=== PATIENT | female | born 1975 | race African-American/Black ===

== ENCOUNTER 2016-09-05 18:31 | Emergency (ER) | payer MEDICARE, MEDICAID, BC ==
[~2016-09-05] VITALS: Ht 162.6 cm; Wt 80.0 kg
[~2016-09-05 18:31] MED LIST: IPRA3AMP IH; MONT10TA21 PO; P50 PO; z pack
[2016-09-05] MEDS ORDERED: IBUPROFEN 600MG TABLET PO ONE (20:00)
[2016-09-05 21:30] VITALS: BP 138/87
== END 2016-09-05 22:16 | disposition home or self-care (01) ==
LOC: ER 18:32
DX: S83.92XA Sprain of unspecified site of left knee, initial encounter (principal); S93.401A Sprain of unspecified ligament of right ankle, initial encounter; J45.909 Unspecified asthma, uncomplicated; Z91.018 Allergy to other foods; Z79.899 Other long term (current) drug therapy; V49.9XXA Car occupant (driver) (passenger) injured in unspecified traffic accident, initial encounter; Y93.89 Activity, other specified; Y99.8 Other external cause status; Y92.89 Other specified places as the place of occurrence of the external cause
CPT/HCPCS: 29505; 73562; 73610; 99284

== ENCOUNTER 2016-10-20 17:37 | Emergency (ER) | payer BC, MEDICARE, MEDICAID ==
[~2016-10-20] VITALS: Ht 160 cm; Wt 89.3 kg
[2016-10-20 17:45] VITALS: BP 128/95
[2016-10-20] MEDS ORDERED: ALBU18HF2 IH (17:45)
[2016-10-20] MEDS ORDERED: MOME13HF IH (17:45)
[2016-10-20] MEDS ORDERED: IBUPROFEN 600MG TABLET PO ONE (19:00)
== END 2016-10-20 18:55 | disposition left against medical advice (07) ==
LOC: ER 18:35
DX: J45.909 Unspecified asthma, uncomplicated (principal); Z53.21 Procedure and treatment not carried out due to patient leaving prior to being seen by health care provider

== ENCOUNTER 2016-11-29 08:17 | Emergency (ER) | payer MEDICARE, MEDICAID ==
[~2016-11-29] VITALS: Ht 167.6 cm; Wt 84.0 kg
[~2016-11-29 08:17] MED LIST changes: +ALBU18HF2 IH; +MOME13HF IH
[2016-11-29] MEDS ORDERED: METHYLPREDNISOLONE SOD SUCC 125 MG/2 ML VIAL IV STA (08:54)
[2016-11-29] MEDS: ALBUTEROL (0.083%) 2.5MG/3ML NEB HHN SCH ×3 (09:19→10:19)
[2016-11-29 12:36] VITALS: BP 144/84
== END 2016-11-29 12:38 | disposition home or self-care (01) ==
LOC: ER 08:46
DX: J45.901 Unspecified asthma with (acute) exacerbation (principal); Z79.899 Other long term (current) drug therapy; Z91.018 Allergy to other foods
CPT/HCPCS: 71010; 94640; 96374; 99284; J2930; J7611

== ENCOUNTER 2016-12-30 23:30 | Emergency (ER) | payer MEDICARE, MEDICAID ==
[~2016-12-30] VITALS: Ht 160 cm; Wt 85.0 kg
[2016-12-30 23:41] VITALS: BP 164/114
[2016-12-30] MEDS ORDERED: ALBUTEROL (0.083%) 2.5MG/3ML NEB HHN STA (23:58)
[2016-12-30] MEDS ORDERED: IPRATROPIUM BROMIDE (0.02%) 0.5MG/2.5ML NEB HHN STA (23:58)
[2016-12-30] MEDS ORDERED: METHYLPREDNISOLONE SOD SUCC 125 MG/2 ML VIAL IV STA (23:58)
[2016-12-31 00:21] LABS: BASOPHILS % 0.3 % (0.0-2.0); HEMATOCRIT. 39.1 % (36.0-48.0); HEMOGLOBIN. 13.1 g/dL (12.0-16.0); LYMPHOCYTES % 36.1 % (20.0-50.0); MEAN CORPUSCULAR HEMOGLOBIN 26.8 pg (28.0-32.0); MEAN CORPUSCULAR VOLUME 80.3 fL (81.0-99.0); MEAN PLATELET VOLUME 8.2 fl (7.4-10.4); MONOCYTES % 4.6 % (2.0-8.0); PLATELET 259 x1000/uL (130-400); RED BLOOD CELL COUNT 4.87 mill/uL (4.2-5.4); RED CELL DISTRIBUTION WIDTH 15.9 % (11.6-14.6)
[2016-12-31 00:29] LABS: HCG SCREEN NEGATIVE
[2016-12-31 00:48] LABS: CARBON DIOXIDE 23 mEq/L (21-32); CHLORIDE 103 mEq/L (98-107)
[2016-12-31] MEDS ORDERED: ALBUTEROL (0.5%) 2.5MG/0.5ML NEB HHN ONE (02:00)
== END 2016-12-31 02:56 | disposition home or self-care (01) ==
LOC: ER 23:30
DX: J45.901 Unspecified asthma with (acute) exacerbation (principal); Z91.018 Allergy to other foods
CPT/HCPCS: 36415; 71010; 80048; 84703; 85025; 93005; 94640; 96374; 99285; J2930; J7611

== ENCOUNTER 2017-01-02 20:58 | Inpatient (IN) | payer MEDICARE, BC, MEDICAID ==
[~2017-01-02] VITALS: Ht 160 cm; Wt 85.3 kg
[~2017-01-02 20:58] MED LIST changes: -IPRA3AMP IH; +IPRA3AMP9 IH
[2017-01-02] MEDS ORDERED: IPRATROPIUM BROMIDE (0.02%) 0.5MG/2.5ML NEB HHN STA (21:03)
[2017-01-02] MEDS ORDERED: MAGNESIUM 2 G PREMIX 50 ML IV STA (21:03)
[2017-01-02] MEDS ORDERED: METHYLPREDNISOLONE SOD SUCC 125 MG/2 ML VIAL IV STA (21:03)
[2017-01-02] MEDS ORDERED: ALBUTEROL (0.083%) 2.5MG/3ML NEB HHN STA ×2 (21:03→22:52)
[2017-01-02 22:06] LABS: BASOPHILS % 0.3 % (0.0-2.0); EOSINOPHILS % 0.1 % (0.0-5.0); HEMATOCRIT. 38.4 % (36.0-48.0); HEMOGLOBIN. 12.5 g/dL (12.0-16.0); LYMPHOCYTES % 31.3 % (20.0-50.0); MEAN CORPUSCULAR HEMOGLOBIN 26.6 pg (28.0-32.0); MEAN CORPUSCULAR VOLUME 81.7 fL (81.0-99.0); MEAN PLATELET VOLUME 8.8 fl (7.4-10.4); MONOCYTES % 6.7 % (2.0-8.0); NEUTROPHILS % 61.6 % (40.0-76.0); PLATELET 297 x1000/uL (130-400); RED CELL DISTRIBUTION WIDTH 16.1 % (11.6-14.6)
[2017-01-02 22:15] LABS: CARBON DIOXIDE 30 mEq/L (21-32); CHLORIDE 102 mEq/L (98-107)
[2017-01-02 22:19] LABS: HCG SCREEN NEGATIVE
[2017-01-02 22:21] LABS: TROPONIN I < 0.02 ng/mL (0.00-0.04)
[2017-01-02] MEDS ORDERED: CLONIDINE 0.1MG TABLET PO PRN (23:45)
[2017-01-02] MEDS ORDERED: DIPHENHYDRAMINE 50MG/ML VIAL IV PRN (23:45)
[2017-01-02] MEDS ORDERED: GUAIFENESIN 200MG/10ML SUGAR FREE UDC PO PRN (23:45)
[2017-01-02] MEDS ORDERED: ACETAMINOPHEN 325MG TABLET PO PRN (23:45)
[2017-01-02] MEDS ORDERED: MAGNESIUM/ALUMINUM HYDROXIDE/SIMETHICONE 30ML UDC PO PRN (23:45)
[2017-01-02] MEDS ORDERED: NA PHOS,M-B/NA PHOS,DI-BA ENEMA 118ML PR PRN (23:45)
[2017-01-02] MEDS ORDERED: IPRATROPIUM/ALBUTEROL 0.5-3(2.5)MG/3ML NEB INH PRN (23:45)
[2017-01-02] MEDS ORDERED: ONDANSETRON HCL 4MG/2ML VIAL IV PRN (23:45)
[2017-01-02] MEDS ORDERED: DOCUSATE SODIUM 100MG CAPSULE PO PRN (23:45)
[2017-01-02] MEDS ORDERED: LORAZEPAM 2MG/ML CPJ IV PRN (23:45)
[2017-01-02] MEDS ORDERED: HYDROMORPHONE HCL/PF 2MG/ML CPJ IV PRN (23:45)
[2017-01-03 00:32] LABS: CARBON DIOXIDE 27 mEq/L (21-32); CHLORIDE 103 mEq/L (98-107)
[2017-01-03] MEDS ORDERED: DEXTROSE 50% WATER 50ML SYRINGE IV PRN (02:00)
[2017-01-03] MEDS ORDERED: ALBU18HF2 IH (04:17)
[2017-01-03] MEDS ORDERED: ALBUTEROL 6.7GM HFA INHALER ORI PRN (04:30)
[2017-01-03] MEDS ORDERED: PRED5TAB48 PO (04:33)
[2017-01-03] MEDS: LEVOFLOXACIN 500MG PREMIX 100 ML IV SCH (05:26)
[2017-01-03] MEDS: METHYLPREDNISOLONE SOD SUCC 125 MG/2 ML VIAL IV SCH ×3 (05:26→17:43)
[2017-01-03 05:51] LABS: CARBON DIOXIDE 26 mEq/L (21-32); CHLORIDE 102 mEq/L (98-107); TROPONIN I < 0.02 ng/mL (0.00-0.04)
[2017-01-03 05:56] LABS: HDL CHOLESTEROL 72 mg/dL (40-59); LDL CHOLESTEROL 46 mg/dL (5-100)
[2017-01-03] MEDS: BLOOD SUGAR DIAGNOSTIC STRIP TEST SCH ×4 (06:39→20:27)
[2017-01-03] MEDS: INSULIN LISPRO 100 UNITS/ML SUBCUT SCH ×4 (07:50→20:26)
[2017-01-03] MEDS: MONTELUKAST SODIUM 10MG TABLET PO SCH (08:25)
[2017-01-03] MEDS: ENOXAPARIN 40MG/0.4ML SYR SUBCUT SCH (08:27)
[2017-01-03 09:36] LABS: BASOPHILS % 0.2 % (0.0-2.0); HEMATOCRIT. 37.5 % (36.0-48.0); HEMOGLOBIN. 12.5 g/dL (12.0-16.0); MEAN CORPUSCULAR HEMOGLOBIN 27.1 pg (28.0-32.0); MEAN PLATELET VOLUME 8.5 fl (7.4-10.4); MONOCYTES % 2.2 % (2.0-8.0); NEUTROPHILS % 88.6 % (40.0-76.0); PLATELET 287 x1000/uL (130-400); RED BLOOD CELL COUNT 4.62 mill/uL (4.2-5.4); RED CELL DISTRIBUTION WIDTH 16.2 % (11.6-14.6)
[2017-01-03] MEDS: HYDROCODONE/ACETAMINOPHEN 5/325MG TABLET PO PRN ×2 (15:27→20:22)
[2017-01-03] MEDS: IPRATROPIUM/ALBUTEROL 0.5-3(2.5)MG/3ML NEB HHN SCH (20:43)
[2017-01-03 22:49] LABS: CLARITY URINE CLEAR (CLEAR); COLOR URINE YELLOW (YELLOW); KETONES URINE TRACE (NEGATIVE); LEUKOCYTE ESTERASE URINE NEGATIVE (NEGATIVE); NITRITE URINE NEGATIVE (NEGATIVE); OCCULT BLOOD URINE NEGATIVE (NEGATIVE); PROTEIN URINE NEGATIVE (NEGATIVE); SPECIFIC GRAVITY URINE 1.029 (1.005-1.030)
[2017-01-04] MEDS: HYDROCODONE/ACETAMINOPHEN 5/325MG TABLET PO PRN ×4 (00:18→15:06)
[2017-01-04] MEDS: METHYLPREDNISOLONE SOD SUCC 125 MG/2 ML VIAL IV SCH ×2 (00:18→05:34)
[2017-01-04] MEDS: IPRATROPIUM/ALBUTEROL 0.5-3(2.5)MG/3ML NEB HHN SCH ×4 (02:01→20:19)
[2017-01-04] MEDS: BLOOD SUGAR DIAGNOSTIC STRIP TEST SCH ×4 (06:23→21:15)
[2017-01-04] MEDS: LEVOFLOXACIN 500MG PREMIX 100 ML IV SCH (06:23)
[2017-01-04] MEDS: INSULIN LISPRO 100 UNITS/ML SUBCUT SCH ×4 (07:50→21:00)
[2017-01-04] MEDS: MONTELUKAST SODIUM 10MG TABLET PO SCH (09:26)
[2017-01-04] MEDS: ENOXAPARIN 40MG/0.4ML SYR SUBCUT SCH (09:27)
[2017-01-04] MEDS: METHYLPREDNISOLONE SOD SUCC 40 MG/ML VIAL IV SCH ×2 (15:05→21:24)
[2017-01-05] MEDS: IPRATROPIUM/ALBUTEROL 0.5-3(2.5)MG/3ML NEB HHN SCH ×3 (02:13→14:31)
[2017-01-05] MEDS: METHYLPREDNISOLONE SOD SUCC 40 MG/ML VIAL IV SCH ×2 (05:05→14:36)
[2017-01-05] MEDS: HYDROCODONE/ACETAMINOPHEN 5/325MG TABLET PO PRN (05:22)
[2017-01-05] MEDS: BLOOD SUGAR DIAGNOSTIC STRIP TEST SCH ×2 (07:26→11:16)
[2017-01-05] MEDS: INSULIN LISPRO 100 UNITS/ML SUBCUT SCH ×2 (07:26→11:16)
[2017-01-05] MEDS: MONTELUKAST SODIUM 10MG TABLET PO SCH (08:37)
[2017-01-05] MEDS: ENOXAPARIN 40MG/0.4ML SYR SUBCUT SCH (09:00)
[2017-01-05] MEDS ORDERED: LEVOFLOXACIN 500MG TABLET PO SCH (11:00)
[2017-01-05 12:00] VITALS: BP 127/100
== END 2017-01-05 17:00 | disposition home or self-care (01) | DRG 871 ==
LOC: ER 21:39 → 6WST 23:42 → ENRESERV 01-03 01:17
PROVIDERS: ADMIT Internal Medicine; ATTEND Internal Medicine
DX: A41.9 Sepsis, unspecified organism (principal); J96.00 Acute respiratory failure, unspecified whether with hypoxia or hypercapnia; J18.9 Pneumonia, unspecified organism; J44.0 Chronic obstructive pulmonary disease with (acute) lower respiratory infection; J45.901 Unspecified asthma with (acute) exacerbation; B34.9 Viral infection, unspecified; E11.9 Type 2 diabetes mellitus without complications; I10 Essential (primary) hypertension; Z79.899 Other long term (current) drug therapy; Z80.9 Family history of malignant neoplasm, unspecified; Z82.49 Family history of ischemic heart disease and other diseases of the circulatory system; Z91.018 Allergy to other foods
CPT/HCPCS: 36415; 71010; 80048; 80053; 80061; 81003; 82962; 83880; 84484; 84703; 85025; 87040; 87086; 94640; 94660; 96372; 96374; 99291; J1650; J1956; J2920; J2930; J3475; J7050; J7611; J7620